=== PATIENT | male | born 1940 | race Caucasian/White ===

== ENCOUNTER 2023-01-05 14:08 | Emergency (ER) | payer MEDICARE ==
[2023-01-05] MEDS ORDERED: Doxycycline 100 MG Cap PO ONE (14:47)
[2023-01-05] MEDS ORDERED: Bacitracin Oint 1 GM U/D Packet TOP ONE (14:47)
== END 2023-01-05 14:58 | disposition home or self-care (01) ==
LOC: JP.ED 14:08
DX: S20.362A Insect bite (nonvenomous) of left front wall of thorax, initial encounter (principal); E78.00 Pure hypercholesterolemia, unspecified; Z88.0 Allergy status to penicillin; Z79.899 Other long term (current) drug therapy; W57.XXXA Bitten or stung by nonvenomous insect and other nonvenomous arthropods, initial encounter
CPT/HCPCS: 99283; A9270; 99282